=== PATIENT | female | born 1995 | race Two or more races ===

== ENCOUNTER 2022-11-19 20:10 | Emergency (ER) | payer OTHER ==
[2022-11-19 21:03] LABS: BILIRUBIN,URINE NEGATIVE (NEGATIVE); GLUCOSE, URINE (UA) NEGATIVE (NEGATIVE); KETONES,URINE (UA) NEGATIVE (NEGATIVE); LEUKOCYTE ESTERASE, URINE NEGATIVE (NEGATIVE); NITRITE,URINE NEGATIVE (NEGATIVE); OCCULT BLOOD,URINE NEGATIVE (NEGATIVE); PH,URINE 6.5 PH (5.0-7.5); PROTEIN,URINE NEGATIVE (NEGATIVE); UROBILINOGEN,URINE 0.2 (NORMAL) E.U./dL (NORMAL)
[2022-11-19 21:05] LABS: CLARITY,URINE CLEAR (CLEAR); HCG UR QUAL NEGATIVE
[2022-11-19 21:30] LABS: BASOPHILS # (AUTO) 0.1 10^3/uL (0.0-0.1); BASOPHILS % (AUTO) 0.8 %; EOSINOPHILS # (AUTO) 0.2 10^3/uL (0.0-0.7); EOSINOPHILS % (AUTO) 1.6 %; HCT - HEMATOCRIT 40.2 % (37.0-47.0); HGB - HEMOGLOBIN 13.1 g/dL (12.0-16.0); LYMPHOCYTES # (AUTO) 3.6 10^3/uL (1.5-3.5); LYMPHOCYTES % (AUTO) 26.8 %; MEAN CORPUSCULAR HEMOGLOBIN 27.5 pg (27.0-31.0); MEAN CORPUSCULAR HGB CONC 32.6 g/dL (32.0-36.0); MEAN CORPUSCULAR VOLUME 84.5 fL (81.0-99.0); MEAN PLATELET VOLUME 10.5 fL (7.9-10.8); MONOCYTES # (AUTO) 0.7 10^3/uL (0.0-1.0); MONOCYTES % (AUTO) 5.4 %; NEUTROPHILS # (AUTO) 8.6 10^3/uL (1.5-6.6); NEUTROPHILS % (AUTO) 64.8 %; PLT - PLATELET COUNT 396 10^3/uL (130-450); RED BLOOD COUNT 4.76 10^6/uL (4.20-5.40); RED CELL DISTRIBUTION WIDTH 13.5 % (12.0-15.0); WHITE BLOOD COUNT 13.4 x10^3/uL (4.8-10.8)
[2022-11-19] MEDS ORDERED: ONDANSETRON 4 MG/2 ML VIAL IVP STA (21:40)
[2022-11-19] MEDS ORDERED: HYDROmorphone 1 MG/ML CARPUJECT IVP STA (21:40)
--- NOTE | 2022-11-19 21:42 | ED Physician Documentation ---
<Vince Dillon A - Last Filed: 11/20/22 02:54> PD HPI ABD PAIN - Stated complaint Stated Complaint: ABD PX - Chief complaint Chief Complaint: Abd Pain PD PAST MEDICAL HISTORY - Present Medications Home Medications: Ambulatory Orders Medication Instructions Recorded Confirmed Metoclopramide [Reglan] 10 mg PO Q6H PRN #14 tablet 11/20/22 - Allergies Allergies/Adverse Reactions: Allergies Allergy/AdvReac Type Severity Reaction Status Date / Time No Known Drug Allergies Allergy Verified 11/19/22 20:36 PD Medical Decision Making - ED course ED course: This patient was initially evaluated by Dr. Perrin, and I received the turnover of care at the end of his shift as CT A/P is pending at end of his shift. There were no concerning or diagnostic findings on the CT. The radiologist makes incidental note of "the sigmoid colon is flipped into the left upper quadrant without signs of volvulus". The radiologist also notes "borderline dilated gas- filled appendix at 6 to 7 mm", also noting "no significant surrounding inflammatory changes. There is also reassuring internal gas." Thus, the CT does not have any compelling evidence of acute pathology nor finding that would explain patient's abdominal discomfort. The radiologist does note "moderate fecal loading and distention of the distal ileum without signs of obstruction." I discussed the results with the patient. I explained that the cause of her symptoms is not apparent at this time, although it is possible that the moderate amount of stool could represent constipation which, in turn, could cause abdominal pain. I explained to the patient that, rather than attribute her symptoms to constipation, I think it more appropriate to conclude that there is no explanation for her pain at this time, but I recommended to her that she take some laxatives in order to see if eliminating the variable of constipation alleviates the symptoms. Along these lines, she is given lactulose to take home, instructed to take 15 milliliters as soon as she gets home. Return precautions were discussed. I recommended to the patient that she contact her primary care provider on Tuesday when the office opens to arrange for next billable appointment for reevaluation. On my reevaluation, prior to discharge and when I was discussing with the patient the results of these tests, she is in no apparent distress and nontender on the exam. She had received a medication including IV Dilaudid earlier. I provided her a take-home pack of Percocet, cautioning her that she should take these only as needed for pain, as they can potentiate/worsen constipation. Departure - Departure Disposition: 01 Home, Self Care Clinical Impression: Constipation Qualifiers: Constipation type: unspecified constipation type Qualified Code(s): K59.00 - Constipation, unspecified Abdominal pain Qualifiers: Abdominal location: right lower quadrant Qualified Code(s): R10.31 - Right lower quadrant pain Condition: Good Instructions: ED Abdominal Pain Female Non-Specific Abdominal Pain, ED Abdominal Pain Appendx Poss, ED Constipation Prescriptions: Metoclopramide [Reglan] 10 mg PO Q6H PRN #14 tablet PRN Reason: Nausea / Vomiting Comments: There were no diagnostic findings on the tests performed tonight. As we discussed, your white blood cell count was mildly elevated; this is a nonspecific finding and it is not elevated to an alarming extent. The CT scan of your abdomen pelvis shows a moderate amount of stool, which might be indicative of constipation. For this reason, you were given medication (lactulose) to take once you get home. You can drink the full amount (1 tablespoon). If this does not result in a large bowel movement and improvement in your symptoms, consider getting another laxative at the pharmacy; I would suggest a medication such as MiraLAX, which is [id number]. Follow the label instructions. I have electronically submitted a prescription for an antinausea medication (metoclopramide) to the [facility] pharmacy in [place]. As we discussed, the CAT scan of your abdomen and pelvis also showed that your appendix was at the borderline between a normal diameter and dilated. When someone has appendicitis, the appendix becomes dilated and filled with fluid, and then inflammation is seen in and around the appendix. Fortunately, your appendix is only borderline in size, and it is filled with gas and not fluid (this finding of gas in the appendix would argue against appendicitis), and there is no evidence of inflammation in nor around the appendix. In summary, it does not appear that you have appendicitis based on the CT scan. There are no other findings on the CT scan that would explain your abdominal discomfort aside from possibly the large amount of stool. Certainly, you should return to the emergency department at anytime your symptoms worsen, or if you develop new/concerning signs/symptoms, such as fever of 100.4 or higher, worsening abdominal pain, intractable vomiting (vomiting that does not respond to the prescribed antinausea medication), or blood in your stool. Contact your primary care provider's office on Tuesday when they open to arrange for next available appointment for reevaluation. Discharge Date/Time: 11/20/22 01:05 <Deshaun Perrin - Last Filed: 11/20/22 09:07> PD HPI ABD PAIN - History obtained from History obtained from: Patient - Additional information Additional information: 27-year-old woman otherwise healthy with no history of abdominal surgeries has had about a week of bloating and has had on and off pulsating right lower quadrant pain over the last 2 days.'s associated with vomiting once today and she also vomited a week ago. She is trying to get . No vaginal bleeding or discharge. No sick contacts. PD ED PE NORMAL - Vitals Vital signs reviewed: Yes - General General: Alert and oriented X 3, No acute distress - Abdomen Abdomen: Normal bowel sounds, Soft, Other (Mild right lower quadrant tenderness with no surgical signs.) - Derm Derm: Normal color, Warm and dry - Neuro Neuro: Alert and oriented X 3, Normal speech Results - Vitals Vitals: Vital Signs - 24 hr 11/19/22 11/19/22 11/20/22 20:20 23:00 01:04 Temperature 36.3 C L Heart Rate 79 67 83 Respiratory 16 15 Rate Blood Pressure 139/85 H 115/74 123/61 O2 Saturation 99 100 98 Oxygen O2 Source Room air - Labs Labs: Laboratory Tests 11/19/22 11/19/22 11/19/22 20:45 20:45 21:18 WBC 13.4 H RBC 4.76 Hgb 13.1 Hct 40.2 MCV 84.5 MCH 27.5 MCHC 32.6 RDW 13.5 Plt Count 396 MPV 10.5 Neut # (Auto) 8.6 H Lymph # (Auto) 3.6 H [place] # (Auto) 0.7 Eos # (Auto) 0.2 Baso # (Auto) 0.1 Absolute Nucleated RBC 0.00 Nucleated RBC % 0.0 Sodium Potassium Chloride Carbon Dioxide Anion Gap BUN Creatinine Estimated GFR (MDRD) Glucose Calcium Total Bilirubin AST ALT Alkaline Phosphatase Total Protein Albumin Globulin Albumin/Globulin Ratio Lipase Urine Color YELLOW Urine Clarity CLEAR Urine pH 6.5 Ur Specific [place] 1.020 Urine Protein NEGATIVE Urine Glucose (UA) NEGATIVE Urine Ketones NEGATIVE Urine Occult Blood NEGATIVE Urine Nitrite NEGATIVE Urine Bilirubin NEGATIVE Urine Urobilinogen 0.2 (NORMAL) Ur Leukocyte Esterase NEGATIVE Ur Microscopic Review NOT INDICATED Urine Culture Comments NOT INDICATED Urine HCG, Qual NEGATIVE 11/19/22 22:42 WBC RBC Hgb Hct MCV MCH MCHC RDW Plt Count MPV Neut # (Auto) Lymph # (Auto) [place] # (Auto) Eos # (Auto) Baso # (Auto) Absolute Nucleated RBC Nucleated RBC % Sodium 138 Potassium 4.2 Chloride 102 Carbon Dioxide 25 Anion Gap 11.0 BUN 12 Creatinine 0.8 Estimated GFR (MDRD) 85 L Glucose 108 H Calcium 9.6 Total Bilirubin 0.6 AST 18 ALT 23 Alkaline Phosphatase 63 Total Protein 7.7 Albumin 4.2 Globulin 3.5 Albumin/Globulin Ratio 1.2 Lipase 36 Urine Color Urine Clarity Urine pH Ur Specific [place] Urine Protein Urine Glucose (UA) Urine Ketones Urine Occult Blood Urine Nitrite Urine Bilirubin Urine Urobilinogen Ur Leukocyte Esterase Ur Microscopic Review Urine Culture Comments Urine HCG, Qual PD Medical Decision Making - ED course ED course: 27-year-old woman with right lower quadrant pain. The history is somewhat atypical for appendicitis but the exam is concerning as is her CBC showing a leukocytosis at 13,000. Pain medication and a CT is ordered and care to Dr. Dillon at shift change to follow-up on the diagnostics and reevaluate.
[2022-11-19] MEDS ORDERED: iohexoL-300 100 ML VIAL ONE (22:07)
[2022-11-19 23:16] LABS: ALBUMIN 4.2 g/dL (3.2-5.5); ALBUMIN/GLOBULIN RATIO 1.2 (1.0-2.2); BILIRUBIN,TOTAL 0.6 mg/dL (0.2-1.0); CALCIUM 9.6 mg/dL (8.5-10.3); CREATININE 0.8 mg/dL (0.4-1.0); POTASSIUM 4.2 mmol/L (3.5-5.0); TOTAL PROTEIN 7.7 g/dL (6.7-8.2)
[2022-11-19] MEDS ORDERED: iohexoL-300 100 ML VIAL IVP ONE (23:45)
--- NOTE | 2022-11-20 00:01 | CT Report ---
PROCEDURE: ABDOMEN/PELVIS W INDICATIONS: iv ONLY, BLOATING RLQ PAIN CONTRAST: 100 ML OMNI 300 TECHNIQUE: After the administration of IV contrast, 5 mm thick sections acquired from the diaphragms to the symp hysis. 5 mm thick coronal and sagittal reformats were acquired. For radiation dose reduction, the f ollowing was used: automated exposure control, adjustment of mA and/or kV according to patient size. COMPARISON: None FINDINGS: Image quality: Good Lower chest: Trace basal atelectasis. Nonspecific patulous appearance of the distal esophagus. Solid organs: Possible hepatic steatosis. Gallbladder is unremarkable. No pathologic dilation of the biliary tree or pancreatic duct. No splenomegaly. No adrenal nodules. No hydronephrosis. Vessels and lymph nodes: Main portal vein appears patent. No abdominal aortic aneurysm or pathologic adenopathy by size criteria. Bowel and peritoneum: No evidence of small bowel obstruction. No pathologic ascites. No abscess. The sigmoid colon is flipped into the left upper quadrant, without signs of volvulus. Borderline dilated gas-filled appendix at 6 to 7 mm. Moderate fecal loading. There is also moderate distention and fecal material in the distal ileum. Body wall: Tiny fat-containing umbilical hernia. Pelvis: Bladder is unremarkable. Reproductive organs are not well evaluated on CT, there is a suspect ed left corpus luteum cyst and dominant follicle. Consider ultrasound if there is concern. Bones: No acute or suspicious osseous finding. IMPRESSION: The appendix is borderline dilated, however there are no significant surrounding inflammatory changes . There is also reassuring internal gas. No acute abdominopelvic abnormality identified. Clinical fol lowup is recommended. If there is new or worsening clinical concern, reimaging could be obtained. Moderate fecal loading and distention of the distal ileum, without signs of obstruction. Moderate fec alization. This is usually seen is Commonly seen due to slow transit through the ileocecal valve. Other findings as above. Reviewed by: Oswaldo Crook MD on 11/20/2022 12:00 AM PDT Approved by: Oswaldo Crook MD on 11/20/2022 12:00 AM PDT Station ID: [id number]
[2022-11-20] MEDS ORDERED: LACTULOSE 10 GM /15 ML UDC PO STA (00:43)
[2022-11-20] MEDS ORDERED: oxyCODONE/ACET 5/325 Prepack 4 PO STA (00:54)
[2022-11-20 01:06] VITALS: BP 123/61
== END 2022-11-20 01:05 | disposition home or self-care (01) ==
LOC: ED 20:10
DX: K59.00 Constipation, unspecified (principal); R10.31 Right lower quadrant pain
CPT/HCPCS: 36415; 74177; 80053; 81003; 81025; 83690; 85025; 96374; 96375; 99284; A9270; J1170; Q9967; 81001; 87086